=== PATIENT | male | born 1970 | race Caucasian/White ===

== ENCOUNTER 2020-03-04 16:46 | Outpatient (REF) | payer MEDICAID, SELFPAY | END 2020-03-04 16:47 | disposition home or self-care (01) | LOC: HO.LAB 16:46 | PROVIDERS: Visit Provider Internal Medicine | DX: Z20.828 Contact with and (suspected) exposure to other viral communicable diseases (principal) | CPT/HCPCS: 87635 ==

== ENCOUNTER 2020-06-15 15:11 | Outpatient (REF) | payer MEDICAID, SELFPAY | END 2020-06-15 15:12 | disposition home or self-care (01) | LOC: HO.LAB 15:11 | PROVIDERS: PCP Internal Medicine; Visit Provider Internal Medicine | DX: Z20.822 Contact with and (suspected) exposure to COVID-19 (principal) | CPT/HCPCS: 36415; C9803; U0003 ==

== ENCOUNTER 2020-07-07 08:17 | Outpatient (REF) | payer MEDICAID, SELFPAY | END 2020-07-07 08:18 | disposition home or self-care (01) | LOC: HO.LAB 08:17 | PROVIDERS: PCP Internal Medicine; Visit Provider Internal Medicine | DX: Z20.822 Contact with and (suspected) exposure to COVID-19 (principal) | CPT/HCPCS: 36415; C9803; U0003; U0005 ==

== ENCOUNTER 2020-09-21 14:51 | Outpatient (REF) | payer MEDICAID, SELFPAY ==
--- NOTE | ~2020-09-21 | XR_ITS ---
EXAMINATION: XR HIP, RIGHT CLINICAL INFORMATION: Pain COMPARISON: None TECHNIQUE: Two views of the right hip. FINDINGS: Bone alignment is normal. No fracture or dislocation is seen. There is arthritis of the right hip joint with joint space narrowing and osteophyte formation. Soft tissues are unremarkable. XR/XR hip RT min 2V IMPRESSION: Mild to moderate hip arthritis.
== END 2020-09-21 14:52 | disposition home or self-care (01) ==
LOC: HO.XRAY 14:51
PROVIDERS: PCP Internal Medicine; Visit Provider Emergency Medicine
DX: M25.551 Pain in right hip (principal)
CPT/HCPCS: 73502

== ENCOUNTER 2020-10-06 19:20 | Outpatient (REF) | payer MEDICAID, SELFPAY ==
--- NOTE | ~2020-10-06 | MR_ITS ---
EXAMINATION: MR LUMBAR SPINE WITHOUT CONTRAST CLINICAL INFORMATION: Low back pain. COMPARISON: None TECHNIQUE: MRI of the lumbar spine was obtained using routine sequences without contrast. FINDINGS: The lumbar vertebral bodies maintain normal heights and alignment. No significant disc height loss is seen. There is no endplate edema. The distal spinal cord appears normal. The conus medullaris terminates normally at the T12 level. The visualized paraspinal muscles and intra-abdominal and pelvic contents are within normal limits. SPINAL LEVELS: L1-L2: No posterior disc abnormality. No spinal canal or neural foraminal stenosis. L2-L3: No posterior disc abnormality. No spinal canal or neural foraminal stenosis. L3-L4: Disc bulging with flattening the ventral thecal sac and narrowing of the left more than right subarticular zones. Mild facet arthropathy. Moderate left and [id number] right neural foraminal stenosis with mild compression of the exiting left L3 nerve root related to shallow foraminal protrusion. L4-L5: Disc bulging, ligamentum flavum infolding, moderate facet arthropathy, and 4 mm left-sided synovial facet cyst results in mild spinal canal stenosis with bilateral subarticular stenosis and mild to moderate bilateral neural foraminal stenosis without significant foraminal compression. Mild compression of the traversing left L5 nerve root. L5-S1: Disc bulging with moderate facet arthropathy. No spinal canal or neural foraminal stenosis. MR/MR lumbar spine wo con IMPRESSION: At L3-L4 there is left foraminal protrusion resulting in moderate left-sided neural foraminal stenosis with mild compression of the exiting left L3 nerve root. At L4-L5 there are multifactorial degenerative changes including a 4 mm left-sided synovial facet cyst resulting in mild spinal canal stenosis with bilateral subarticular stenosis and mild compression of the traversing left L5 nerve root.
== END 2020-10-06 19:21 | disposition home or self-care (01) ==
LOC: HO.MRI 19:20
PROVIDERS: Visit Provider Internal Medicine
DX: M54.5 Low back pain (principal)
CPT/HCPCS: 72148

== ENCOUNTER 2020-12-21 21:23 | Emergency (ER) | payer MEDICAID, SELFPAY ==
--- NOTE | ~2020-12-21 | CT_ITS ---
EXAMINATION: CT ABDOMEN AND PELVIS WITHOUT CONTRAST CLINICAL INFORMATION: Hematuria and left flank pain COMPARISON: CT abdomen pelvis without contrast 05/17/2014 TECHNIQUE: Multidetector volumetric imaging was performed from the superior aspect of the liver through the pubic symphysis. Sagittal and coronal reformatted images were obtained on the technologist's workstation. This CT examination was performed using dose optimization techniques as appropriate, variously including the following: *Automated exposure control *Adjustment of mA and/or kV according to patient size (this includes techniques or standardized protocols for targeted exams where dose is matched to indication/reason for exam; i.e. extremities or head) *Use of iterative reconstruction technique DLP: 832 mGy-cm FINDINGS: LUNG BASES: The visualized lung bases are unremarkable. LIVER, GALLBLADDER, AND BILIARY TREE: The liver is normal in size, shape, and attenuation. No focal hepatic lesion or biliary ductal dilatation is present. The gallbladder is unremarkable with no evidence of radiopaque gallstones, gallbladder wall thickening, or obvious pericholecystic inflammatory changes. PANCREAS: Unremarkable. SPLEEN: Unremarkable. ADRENAL GLANDS: Unremarkable. KIDNEYS AND URETERS: The kidneys are normal in size, shape, and attenuation. No hydronephrosis, hydroureter, or calculi seen. The obstructing distal right ureteral calculus seen in 2013 is no longer present. No perinephric stranding. BLADDER: Unremarkable. GASTROINTESTINAL TRACT: The small and large bowel are unremarkable. The appendix is unremarkable. ABDOMINAL WALL: No significant hernia is appreciated. Tiny periumbilical hernia seen containing only fat. LYMPH NODES: No retroperitoneal lymphadenopathy. VASCULAR: Unremarkable. PELVIC VISCERA: Prostate appears mildly prominent. Seminal vesicles appear normal. OSSEOUS STRUCTURES: Unremarkable. CT/CT abdomen pelvis wo con IMPRESSION: A cause for the patient's hematuria and left flank pain is not found. No renal calculi are seen.
[2020-12-21 21:30] VITALS: BP 155/90; PULSE 83; RESP 16; TEMP 36.5; O2SAT 97; BMI 33.5
[2020-12-21 22:50] LABS: MANUAL DIFF FLAG NO
[2020-12-21 22:51] LABS: Basophils Percent Auto 0.4 % (0-2); Eosinophils Absolute Auto 0.2 X10*3/uL (0.0-0.4); Eosinophils Percent Auto 3.8 % (0-4); Hematocrit 38.6 % (42-52); Hemoglobin 14.1 g/dl (14.0-18.0); Imm Gran Abs Auto 0.01 X10*3/uL (0.00-0.03); Imm Gran Pct Auto 0.2 % (0.0-0.4); Lymphocytes Absolute Auto 1.6 X10*3/uL (1.2-4.9); Lymphocytes Percent Auto 33.6 % (20-40); Mean Corpuscular HGB Conc 36.5 g/dl (31.0-36.0); Mean Corpuscular Hemoglobin 30.9 pg (27.0-33.0); Mean Corpuscular Volume 84.6 fL (80-98); Mean Platelet Volume 9.5 fL (9.4-12.4); Monocytes Absolute Auto 0.4 X10*3/uL (0.1-1.2); Monocytes Percent Auto 8.4 % (2-11); Neutrophils Absolute Auto 2.6 X10*3/uL (2.0-8.3); Neutrophils Percent Auto 53.6 % (45-73); Platelet Count 160 X10*3/uL (160-400); Red Blood Count 4.56 X10*6/uL (4.60-5.80); Red Cell Distribution Width 11.8 % (11.0-16.0); White Blood Count 4.8 X10*3/uL (4.8-10.8)
[2020-12-21 23:27] LABS: Alanine Aminotransferase 31 U/L (0-40); Albumin Level 4.2 g/dL (3.5-5.0); Alkaline Phosphatase 124 U/L (39-117); Anion Gap 13 (12-20); Aspartate Amino Transferase 18 U/L (5-37); Blood Urea Nitrogen 14 mg/dL (9-16); Calcium 9.5 mg/dL (8.4-10.2); Carbon Dioxide 26 mmol/L (22-29); Chloride 99 mmol/L (96-108); Creatinine Clr Calc Pharmacy 102.4; Estimated Glomerular Filt Rate > 60; Glucose Random 475 mg/dL (60-115); Potassium 4.2 mmol/L (3.3-5.1); Sodium 134 mmol/L (135-145); Total Protein 6.9 g/dL (6.5-8.0)
[2020-12-21 23:29] VITALS: BP 148/86; PULSE 77; RESP 18; O2SAT 98
--- NOTE | 2020-12-21 23:30 | ED_ITS ---
HPI - Male Genitourinary General Chief complaint: Urogenital-Male Stated complaint: blood in urine Time Seen by Provider: 12/21/20 23:25 Source: patient Mode of arrival: ambulatory Limitations: no limitations History of Present Illness HPI Narrative: 50-year-old male came in for evaluation of hematuria. Patient noted couple drops of bright red blood on the toilet seat driving out of his penis after urination, patient also been complaining of left flank pain for the past couple days, patient had a history of kidney stones in the past. Patient also found to have high blood sugar patient is known to be type 2 onelia betes controlling his sugar with metformin. Related Data Allergies Allergy/AdvReac Type Severity Reaction Status Date / Time prednisone [PREDNISONE] Allergy Unknown EVERYTHING Unverified 02/05/20 16:28 SMELLS LIKE ALCOHOL Review of Systems Review of Systems: All other systems are reviewed and are negative Constitutional: Reports as per HPI and Reports no additional constitutional complaints Eyes: Reports as per HPI and Reports no additional eye complaints Reports system reviewed and no additional complaints, except as documented Cardiovascular: Reports as per HPI and Reports no additional cardiovascular complaints Respiratory: Reports as per HPI and Reports no additional respiratory complaints Gastrointestinal: Reports as per HPI and Reports no additional gastrointestinal complaints Genitourinary: Reports no additional female genitourinary complaints Musculoskeletal: Reports no additional musculoskeletal complaints Skin/Breast: Reports system reviewed and no additional complaints, except as docu Psychiatric: Reports no additional psychiatric complaints Endocrine: Reports no additional endocrine complaints Hematologic/Lymphatic: Reports no additional hematologic/lymphatic complaints Allergic/Immunologic: Reports no additional allergic/immunologic complaints Reports system reviewed and no additional complaints, except as documented and Reports Abnormal speech present [facility] Past Medical History Medical History Arthritis Diabetes HTN (hypertension) Social History Social History Advance Directives: No Advance Directives Information Provided: No Physical Exam Vital Signs: Vital Signs: Last Vital Signs Temp 97.7 F 12/21/20 21:30 Pulse 77 12/21/20 23:29 Resp 18 12/21/20 23:29 BP 148/86 H 12/21/20 23:29 Pulse Ox 98 12/21/20 23:29 Body Mass Index 33.5 Vital signs have been reviewed as appeared to be correct. Blood pressure elevated. Heart rate normal. Respiration rate normal. Temperature normal. Oxygen saturation normal. Appearance: Alert. Oriented X3. No acute distress. Head: Normal external exam. Normocephalic. Atraumatic. No Taylor signs noted. No raccoon eyes noted Eyes: PERRLA. EOMI. Conjunctiva and sclera normal. Eyelids normal. ENT: TM's Normal. Pharynx normal. Uvula midline. Moist mucous membranes. No trismus noted. No drooling noted. No muffled voice noted. Neck: Normal inspection. Neck supple. FROM. No adenopathy. Thyroid Normal. No meningeal signs. No neck mass noted. CVS: Normal heart rate and rhythm. Heart sound normal. No murmurs noted. Pulses normal throughout. Respiratory: No respiratory distress. Painless inspiration. Breath sounds normal. No wheezes/rales/rhonchi noted. Chest nontender. No accessory muscle usage noted or decreased air movement noted. Abdomen: Soft and nontender. Bowel sounds normal in all 4 quadrants. No distention noted. No organomegaly noted. No visible injury noted. Back: Left CVA tenderness. Full range of motion noted. Skin: Skin warm and dry. Normal skin color. Normal skin turgor. No rashes/lesions/lacerations noted. Extremities: No lower extremity edema. Extremities exhibit normal range of motion. Extremities nontender. Neuro: Oriented X 3. No motor deficit. No sensory deficit. Reflexes normal. Course Course Course Narrative: Assessment and plan. 50-year-old male came in with left flank pain and gross hematuria, with history of kidney stone, CT abdomen pelvis showed no acute kidney stone. Will refer the patient to neurology for further evaluation for hematuria. Patient is diabetes type 2 using Glucophage found to have high blood sugar, no DKA, patient was given IV fluids and insulin blood sugar is 199. MDM - Male Genitourinary Lab Data Attestation: I reviewed the patient's lab results. Result diagrams: 12/21/20 22:44 12/21/20 22:44 Labs: Lab Results 12/21/20 12/21/20 12/21/20 Range/Units 21:49 22:44 22:44 WBC 4.8 (4.8-10.8) X10*3/uL RBC 4.56 L (4.60-5.80) X10*6/uL Hgb 14.1 (14.0-18.0) g/dl Hct 38.6 L (42-52) % MCV 84.6 (80-98) fL MCH 30.9 (27.0-33.0) pg MCHC 36.5 H (31.0-36.0) g/dl RDW 11.8 (11.0-16.0) % Plt Count 160 (160-400) X10*3/uL MPV 9.5 (9.4-12.4) fL Immature Gran % (Auto) 0.2 (0.0-0.4) % Neut % (Auto) 53.6 (45-73) % Lymph % (Auto) 33.6 (20-40) % Merrick % (Auto) 8.4 (2-11) % Eos % (Auto) 3.8 (0-4) % Baso % (Auto) 0.4 (0-2) % Lymph # (Auto) 1.6 (1.2-4.9) X10*3/uL Merrick # (Auto) 0.4 (0.1-1.2) X10*3/uL Eos # (Auto) 0.2 (0.0-0.4) X10*3/uL Baso # (Auto) 0.0 (0.0-0.2) X10*3/uL Abs Immat Gran (auto) 0.01 (0.00-0.03) X10*3/uL Absolute Neuts (auto) 2.6 (2.0-8.3) X10*3/uL Absolute Nucleated RBC 0.000 (0.0-0.012) X10*3/uL Nucleated RBC % (auto) 0.0 (0.0-0.2) /100WBC Sodium 134 L (135-145) mmol/L Potassium 4.2 (3.3-5.1) mmol/L Chloride 99 (96-108) mmol/L Carbon Dioxide 26 (22-29) mmol/L Anion Gap 13 (12-20) BUN 14 (9-16) mg/dL Creatinine 1.14 (0.5-1.4) mg/dL Estim Creat Clear Calc 102.4 Estimated GFR > 60 POC Glucose (60-115) mg/dL Random Glucose 475 H* (60-115) mg/dL Calcium 9.5 (8.4-10.2) mg/dL Total Bilirubin 1.0 (0.0-1.0) mg/dL AST 18 (5-37) U/L ALT 31 (0-40) U/L Alkaline Phosphatase 124 H (39-117) U/L Total Protein 6.9 (6.5-8.0) g/dL Albumin 4.2 (3.5-5.0) g/dL Urine Color YELLOW Urine Appearance CLEAR Urine pH 6.0 (5.0-8.0) Ur Specific [place] 1.010 (1.005-1.025) Urine Protein NEG (NEG-TRACE) MG/DL Urine Glucose (UA) >=1000 H (NEG) MG/DL Urine Ketones NEG (NEG) MG/DL Urine Blood NEG (NEG) Urine Nitrite NEG (NEG) Ur Leukocyte Esterase NEG (NEG) Urine RBC 0 (0) /HPF Urine WBC 0 (0-4) /HPF Ur Squamous Epith Cells 1+ /LPF Urine Bacteria NONE /LPF Urine Mucus 1+ /LPF 12/22/20 Range/Units 00:31 WBC (4.8-10.8) X10*3/uL RBC (4.60-5.80) X10*6/uL Hgb (14.0-18.0) g/dl Hct (42-52) % MCV (80-98) fL MCH (27.0-33.0) pg MCHC (31.0-36.0) g/dl RDW (11.0-16.0) % Plt Count (160-400) X10*3/uL MPV (9.4-12.4) fL Immature Gran % (Auto) (0.0-0.4) % Neut % (Auto) (45-73) % Lymph % (Auto) (20-40) % Merrick % (Auto) (2-11) % Eos % (Auto) (0-4) % Baso % (Auto) (0-2) % Lymph # (Auto) (1.2-4.9) X10*3/uL Merrick # (Auto) (0.1-1.2) X10*3/uL Eos # (Auto) (0.0-0.4) X10*3/uL Baso # (Auto) (0.0-0.2) X10*3/uL Abs Immat Gran (auto) (0.00-0.03) X10*3/uL Absolute Neuts (auto) (2.0-8.3) X10*3/uL Absolute Nucleated RBC (0.0-0.012) X10*3/uL Nucleated RBC % (auto) (0.0-0.2) /100WBC Sodium (135-145) mmol/L Potassium (3.3-5.1) mmol/L Chloride (96-108) mmol/L Carbon Dioxide (22-29) mmol/L Anion Gap (12-20) BUN (9-16) mg/dL Creatinine (0.5-1.4) mg/dL Estim Creat Clear Calc Estimated GFR POC Glucose 199 H (60-115) mg/dL Random Glucose (60-115) mg/dL Calcium (8.4-10.2) mg/dL Total Bilirubin (0.0-1.0) mg/dL AST (5-37) U/L ALT (0-40) U/L Alkaline Phosphatase (39-117) U/L Total Protein (6.5-8.0) g/dL Albumin (3.5-5.0) g/dL Urine Color Urine Appearance Urine pH (5.0-8.0) Ur Specific [place] (1.005-1.025) Urine Protein (NEG-TRACE) MG/DL Urine Glucose (UA) (NEG) MG/DL Urine Ketones (NEG) MG/DL Urine Blood (NEG) Urine Nitrite (NEG) Ur Leukocyte Esterase (NEG) Urine RBC (0) /HPF Urine WBC (0-4) /HPF Ur Squamous Epith Cells /LPF Urine Bacteria /LPF Urine Mucus /LPF Imaging Data CT scan - abdomen: Radiologist's impression: A cause for the patient's hematuria and left flank pain is not found. No renal calculi are seen. Discharge Plan Discharge Clinical Impression: Hyperglycemia due to diabetes mellitus Hematuria Qualifiers: Hematuria type: gross Qualified Code(s): R31.0 - Gross hematuria Patient Disposition: Home, Self-Care Instructions: Hematuria (ED), Diabetic Hyperglycemia (ED) Referrals: Kavon Garnett MD [Physician] - 2 days Marcus Crooks MD [Primary Care Provider] - 2 days
[2020-12-21] MEDS: 0.9 % Sodium Chloride 1,000 ML 999 ML IVCONT (23:38)
[2020-12-21] MEDS: Ketorolac Tromethamine 15 MG/ML VIAL 30 MG IVPUSH (23:40)
[2020-12-21] MEDS: Insulin Regular, Human 100 UNIT/ML 3 ML VIAL IVPUSH (23:41)
--- NOTE | 2020-12-21 23:44 | PC.NURSE ---
pt off to CT via stretcher s/p being medicated per MD orders for 10 left flank pain
[2020-12-21 23:49] LABS: Glucose Urine UA >=1000 MG/DL (NEG); Leukocyte Esterase Urine NEG (NEG); Nitrite Urine NEG (NEG); Urine Blood NEG (NEG); Urine Ketones NEG (NEG); Urine Protein NEG (NEG-TRACE)
[2020-12-21 23:50] LABS: Appearance Urine CLEAR; Color Urine YELLOW
[2020-12-22 00:16] LABS: Mucus Urine 1+ /LPF; RBC Urine 0 /HPF (0); Squamous Epithelial Cell Urine 1+ /LPF; WBC Urine 0 /HPF (0-4)
[2020-12-22 00:37] LABS: Glucose, Whole Blood 199 mg/dL (60-115)
== END 2020-12-22 01:21 | disposition home or self-care (01) ==
PROVIDERS: Emergency Medicine; Emergency Provider Emergency Medicine; PCP Internal Medicine
DX: E11.65 Type 2 diabetes mellitus with hyperglycemia (principal); R31.0 Gross hematuria; I10 Essential (primary) hypertension; Z87.442 Personal history of urinary calculi
CPT/HCPCS: 36415; 74176; 80053; 81001; 82947; 85025; 87086; 96361; 96374; 96375; 99284; J1885

== ENCOUNTER 2020-12-27 08:54 | Outpatient (REF) | payer MEDICAID, SELFPAY ==
--- NOTE | ~2020-12-27 | US_ITS ---
EXAMINATION: US ABDOMEN LIMITED CLINICAL INFORMATION: Palpable abdominal protrusion (left upper abdomen below left ribs). COMPARISON: CT abdomen and pelvis without contrast dated 12/21/2020. TECHNIQUE: Real-time imaging of the area of concern examined inferior to left ribs. FINDINGS: Ultrasound imaging to the palpable area just inferior to the left ribs reveals no mass, mass effect or fluid collection. US/US abdomen limited IMPRESSION: No abnormal ultrasound findings corresponding to abnormal palpable area inferior to left ribs. Correlation with limited CT can be performed to exclude any hypertrophic spurring or callus formation of the left ribs or costal cartilage.
== END 2020-12-27 08:55 | disposition home or self-care (01) ==
LOC: HO.US 08:54
PROVIDERS: PCP Internal Medicine; Visit Provider Emergency Medicine
DX: K43.9 Ventral hernia without obstruction or gangrene (principal)
CPT/HCPCS: 76705

== ENCOUNTER 2021-12-08 15:20 | Outpatient (REF) | payer MEDICAID, SELFPAY ==
--- NOTE | ~2021-12-08 | XR_ITS ---
EXAMINATION: XR KNEE, LEFT CLINICAL INFORMATION: Left knee pain. COMPARISON: None TECHNIQUE: Three views of the left knee. FINDINGS: Normal osseous mineralization. There is no evidence of acute fracture or dislocation. Joint spaces are preserved. Changes of enthesopathy are noted at the patella, at the insertion of quadriceps tendon. No evidence of suprapatellar joint effusion. Scattered vascular calcifications. XR/XR knee LT 3V IMPRESSION: No acute osseous abnormality in the knee. Patellar enthesophyte at insertion of quadriceps tendon.
== END 2021-12-08 15:21 | disposition home or self-care (01) ==
LOC: HO.XRAY 15:20
PROVIDERS: Absent Provider Internal Medicine; PCP Internal Medicine; Visit Provider Internal Medicine
DX: M25.562 Pain in left knee (principal)
CPT/HCPCS: 73562

== ENCOUNTER 2022-02-03 | Outpatient (REF) | payer MEDICAID, SELFPAY ==
--- NOTE | ~2022-02-03 | XR_ITS ---
EXAMINATION: XR KNEE AP STANDING CLINICAL INFORMATION: Pain. COMPARISON: Right knee radiographs dated 12/08/2021. TECHNIQUE: AP bilateral standing view of the knees was obtained. FINDINGS: Bony alignment and mineralization are normal. No fracture or joint effusion. Alignment is anatomic. Joint spaces are well maintained. There is nonspecific bilateral tibial and fibular periosteal thickening. On the right, this is stable from 12/08/2021. No abnormal soft tissue calcification. XR/XR knee standing BI IMPRESSION: 1. The bilateral lateral and medial joint space compartments are well-maintained. 2. No significant varus or valgus configuration is seen bilaterally. 3. No fracture or dislocation is noted. 4. There is nonspecific bilateral tibial and fibular periosteal thickening, likely chronic and reflecting prior injury.
== END 2022-02-03 00:01 | disposition home or self-care (01) ==
LOC: HO.HOSX
PROVIDERS: Visit Provider Physician Assistant
DX: M23.92 Unspecified internal derangement of left knee (principal); E11.9 Type 2 diabetes mellitus without complications
CPT/HCPCS: 20610; 73565; 99202; J1020

== ENCOUNTER 2022-02-23 16:00 | Outpatient (RCR) | payer MEDICAID, SELFPAY ==
--- NOTE | 2022-02-16 17:03 | MHC.PT.EP ---
[facility] [place] Office [place] Office [place] Office [address] Chiqui Carter [address] [phone] F: [phone] F: [phone] F: [phone] F: [phone] Physical Therapy Plan of Care Date of Evaluation: Date of Surgery: Diagnosis: Unspecified internal derangement of L knee Assessment: Patient is 51 y.o male who presents to physical therapy with MD Dx of internal derangement of L knee, not yet confirmed by imaging. He presents as possible small meniscal tear and possible MCL sprain/strain due to tender and effected area. He has weakness in L knee and L hip, antalgic gait, impaired squats, difficulty at work with prolonged standing and walking, stair use. He will benefit from skilled PT to strengthen L knee for more support, manage pain and restore his functional mobility to prior level of function prior to injury. Frequency and Duration: The patient will be seen 1-2x/week for 4 weeks Short Term Goals: 2 weeks Patient demonstrates consistency and independence with HEP to self manage symptoms. Patient demonstrates normalized gait pattern without L knee pain. Long-Term Goals: 4 weeks Patient tests 5/5 L knee flexion strength to be able to ascend/descend 12 steps reciprocally. Patient tests 5/5 L knee extension strength to be able to perform squat without difficulty for work tasks. Treatment Plan: Modalities to reduce pain, spasms and effusion. Manual therapy to restore motion and function. Therapeutic exercise to improve strength and flexibility. Neuromuscular re-education for posture and balance. Therapeutic activities to return to functional activities of daily living. Electronically signed by: Marcelo Peterson, PT, DPT Please sign and return to therapist. Thank you for your referral.
--- NOTE | 2022-03-10 15:30 | MHC.PT.DC ---
[facility] [place] Office [place] Office [place] Office [address] Chiqui Carter [address] [phone] F: [phone] F: [phone] F: [phone] F: [phone] Physical Therapy Discharge Report Diagnosis: Unspecified internal derangement of L knee Date of Surgery: Date of Evaluation: 02/16/22 Date of Discharge: 03/10/22 Treatments to Date: 2 Cancellations to Date: No Shows to Date: Discharge Status: Discharge Summary: Pt progressed w/primarily [place] ex's w/o increased px reported. No visual signs of edema at this time. Patient called to request discharge from PT. Electronically signed by: Marcelo Peterson PT, DPT Please sign and return to therapist. Thank you for your referral.
== END 2022-03-10 15:31 | disposition home or self-care (01) ==
LOC: HO.PT 16:00
PROVIDERS: PCP Internal Medicine; Visit Provider Physician Assistant
DX: M23.92 Unspecified internal derangement of left knee (principal)
CPT/HCPCS: 97110; 97112; 97161

== ENCOUNTER 2022-03-21 07:21 | Outpatient (REF) | payer MEDICAID, SELFPAY ==
--- NOTE | ~2022-03-21 | MR_ITS ---
EXAMINATION: MR KNEE WITHOUT CONTRAST, LEFT CLINICAL INFORMATION: Internal derangement of the knee. COMPARISON: None TECHNIQUE: MRI of the knee without contrast was performed using routine sequences on a high-field scanner. FINDINGS: MENISCI: Medial Meniscus: Degenerative signal in the posterior horn. Mild posterior root fraying. Otherwise intact. Lateral Meniscus: Intact LIGAMENTS: Cruciate: Intact Collateral: Intact EXTENSOR MECHANISM: Intact ARTICULAR CARTILAGE/BONE: Patellofemoral Compartment: No significant cartilage loss Medial Compartment: Cartilage fissuring in the lateral aspect of the medial femoral condyle. Lateral Compartment: No significant cartilage loss. No fracture. No suspicious marrow signal changes. JOINT FLUID AND BURSAE: Small effusion. Small Butts's cyst. Possible mild proximal medial gastrocnemius tendinosis. MR/MR knee LT wo con IMPRESSION: 1. Mild posterior root fraying of the medial meniscus. 2. Mild chondromalacia in the lateral aspect of the medial femoral condyle. 3. Small effusion. Small Butts's cyst. 4. Possible mild proximal medial gastrocnemius tendinosis.
== END 2022-03-21 07:22 | disposition home or self-care (01) ==
LOC: HO.MRI 07:21
PROVIDERS: Visit Provider Physician Assistant
DX: M23.92 Unspecified internal derangement of left knee (principal)
CPT/HCPCS: 73721

== ENCOUNTER → 2022-03-27 13:16 | Outpatient (BNVA) | payer MEDICAID, SELFPAY | PROVIDERS: PCP Internal Medicine; Visit Provider Physician Assistant | DX: M23.92 Unspecified internal derangement of left knee (principal); E11.9 Type 2 diabetes mellitus without complications | CPT/HCPCS: 99212 ==

== ENCOUNTER 2022-09-06 14:11 | Outpatient (REF) | payer MEDICAID, SELFPAY ==
--- NOTE | ~2022-09-06 | XR_ITS ---
EXAMINATION: Bilateral shoulder x-ray CLINICAL INFORMATION: Pain COMPARISON: None. TECHNIQUE: 4 views of each shoulder FINDINGS: Left: Bone alignment is normal. No fracture or dislocation. Normal joint spaces. Arthritis at the acromioclavicular joint. Small undersurface acromial osteophyte. Normal soft tissues. Right: Bone alignment is normal. No fracture or dislocation. There is arthritis at the glenohumeral and acromioclavicular joints. Soft tissues are normal. XR/XR shoulder LT min 2V IMPRESSION: Bilateral arthritis, right greater than left.
--- NOTE | ~2022-09-06 | XR_ITS ---
EXAMINATION: Bilateral shoulder x-ray CLINICAL INFORMATION: Pain COMPARISON: None. TECHNIQUE: 4 views of each shoulder FINDINGS: Left: Bone alignment is normal. No fracture or dislocation. Normal joint spaces. Arthritis at the acromioclavicular joint. Small undersurface acromial osteophyte. Normal soft tissues. Right: Bone alignment is normal. No fracture or dislocation. There is arthritis at the glenohumeral and acromioclavicular joints. Soft tissues are normal. XR/XR shoulder RT min 2V IMPRESSION: Bilateral arthritis, right greater than left.
== END 2022-09-06 14:12 | disposition home or self-care (01) ==
LOC: HO.XRAY 14:11
PROVIDERS: PCP Internal Medicine; Visit Provider Internal Medicine
DX: M25.511 Pain in right shoulder (principal); M25.512 Pain in left shoulder
CPT/HCPCS: 73030

== ENCOUNTER 2022-12-18 09:07 | Day surgery (SDC) | payer MEDICAID, SELFPAY ==
--- NOTE | 2022-12-15 12:13 | P.CONAN_ITS ---
Documented by User: Sharon Lu NP 12/15/22 12:14 HPI - Anesthesia Eval Consult details Narrative: 52yo M for Colonoscopy PMF Active Problems Active Problems: All Active Problems (Updated 02/03/22 @ 08:55 by Angela Dee PA-C) Diabetes (Acute) Internal derangement of left knee (Acute) Past Medical History Medical History Arthritis Diabetes HTN (hypertension) Surgical History Surgical History (Updated 12/18/22 @ 10:29 by Caron Sarkar, RN) H/O carpal tunnel repair H/O elbow surgery Hx of colonoscopy Social History Social History Patient Tobacco Use Status: Former Tobacco user Are you DNR?: No Advance Directives: No Advance Directives Information Provided: Yes Current occupational status: employed 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 Meds Allergies Allergy/AdvReac Type Severity Reaction Status Date / Time prednisone [PREDNISONE] Allergy Unknown EVERYTHING Unverified 03/27/22 13:19 SMELLS LIKE ALCOHOL Home Medications Medication Instructions Recorded Confirmed Last Taken Type acetaminophen 500 mg tablet 1,000 mg PO BEDTIME 02/03/22 12/15/22 History hydrochlorothiazide 25 mg tablet 25 mg PO DAILY 02/03/22 12/15/22 History metformin 500 mg tablet 500 mg PO BID 02/03/22 12/15/22 History Exam Exam Date and Time: December 15, 2022 1213 Assessment and Plan Assessment Anesthesia Assessment: Chart Reviewed Documented by User: Yesy Leiva MD 12/18/22 11:42 [facility] Past Medical History Medical History Arthritis Diabetes HTN (hypertension) Family History Family history of problems with anesthesia: No Surgical History Surgical History (Updated 12/18/22 @ 10:29 by Caron Sarkar RN) H/O carpal tunnel repair H/O elbow surgery Hx of colonoscopy History of Problems with Anesthesia: No Social History Social History Patient Tobacco Use Status: Former Tobacco user Are you DNR?: No Advance Directives: No Advance Directives Information Provided: Yes Current occupational status: employed Current occupation: printing shop/rt hand Meds Allergies Allergy/AdvReac Type Severity Reaction Status Date / Time prednisone [PREDNISONE] Allergy Unknown EVERYTHING Unverified 03/27/22 13:19 SMELLS LIKE ALCOHOL Home Medications Medication Instructions Recorded Confirmed Last Taken Type acetaminophen 500 mg tablet 1,000 mg PO BEDTIME 02/03/22 12/15/22 History hydrochlorothiazide 25 mg tablet 25 mg PO DAILY 02/03/22 12/15/22 History metformin 500 mg tablet 500 mg PO BID 02/03/22 12/15/22 History Exam Airway Mallampati Class: II TM Dist: >3cm Neck ROM: Full Heart: rr Lungs: cta Assessment and Plan Assessment Anesthesia Assessment: Anesthesia Plan Discussed and Smoking Cess. Discussed Final Anesthetic Review Family History of Problems with Anesthesia: No History of Problems with Anesthesia: No NPO: Yes ASA Class: II Final Preanesthetic Review: No Changes in Pt Med Stat, Meds/Allgs Chart Reviewed, Consent Obtained/Reviewed and Anes Risks/Benef Reviewed Patient Risk: Low Procedure Risk: Low Anesthetic Plan Anesthetic Plan: MAC: Disposition: Standard PACU
[2022-12-18 09:40] VITALS: BMI 32.4
[2022-12-18 10:15] VITALS: BP 152/79; PULSE 86; RESP 18; TEMP 36.3; O2SAT 98
[2022-12-18 10:17] LABS: Glucose, Whole Blood 327 mg/dL (60-115)
--- NOTE | 2022-12-18 10:22 | PC.NURSE ---
plan for hihg bs is fluids bolus pt aware of plan of care and recheck bs prior to having colonscopy
[2022-12-18 11:02] LABS: Glucose, Whole Blood 258 mg/dL (60-115)
--- NOTE | 2022-12-18 11:06 | PC.NURSE ---
bs after liter bolus 258 anesthesia aware
--- NOTE | 2022-12-18 12:04 | P.BOP_ITS ---
Brief Operative Note Date of Service: 12/18/22 Pre-op diagnosis: Screening Post-op diagnosis: other (Diverticulosis) Procedure: Colonoscopy to the cecum Surgeon: Carlos Kapoor Anesthesia: MAC Was an Registered Safety Engineer used for this Procedure?: No Estimated blood loss (mL): 0 Pathology: none sent Condition: stable Disposition: PACU
[2022-12-18 12:07] VITALS: BP 146/73; PULSE 73; RESP 15; TEMP 36.1; O2SAT 97
[2022-12-18 12:22] VITALS: BP 158/87; PULSE 79; RESP 15; O2SAT 95
--- NOTE | 2022-12-18 12:45 | HO.ANESPROP2 ---
HPI - Anesthesia Eval Consult details Narrative: [facility] Active Problems Active Problems: All Active Problems (Updated 02/03/22 @ 08:55 by Angela Dee PA-C) Internal derangement of left knee (Acute) Diabetes (Acute) Past Medical History Medical History Arthritis Diabetes HTN (hypertension) Family History Family history of problems with anesthesia: No Surgical History Surgical History (Updated 12/18/22 @ 10:29 by Caron Sarkar RN) H/O carpal tunnel repair H/O elbow surgery Hx of colonoscopy History of Problems with Anesthesia: No Social History Social History Patient Tobacco Use Status: Former Tobacco user Are you DNR?: No Advance Directives: No Advance Directives Information Provided: Yes Current occupational status: employed 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 Meds Allergies Allergy/AdvReac Type Severity Reaction Status Date / Time prednisone [PREDNISONE] Allergy Unknown EVERYTHING Unverified 03/27/22 13:19 SMELLS LIKE ALCOHOL Active Medications: Current Medications Lactated Ringer's (Lr) 1,000 mls @ 100 mls/hr IVCONT .Q10H KATYA Sodium Biphosphate/Sodium Phosphate (Sodium Phosphate,[place]-Dibasic 133 Ml Enema) 133 ml MI ONCE PRN PRN Reason: Poor Colonoscopy Prep Results Home Medications Medication Instructions Recorded Confirmed Last Taken Type acetaminophen 500 mg tablet 1,000 mg PO BEDTIME 02/03/22 12/15/22 History hydrochlorothiazide 25 mg tablet 25 mg PO DAILY 02/03/22 12/15/22 History metformin 500 mg tablet 500 mg PO BID 02/03/22 12/15/22 History Exam Exam Date and Time: December 18, 2022 1245 Height,Weight and Vital Signs: Height 6 ft Weight 108.409 kg Last Vital Signs Temp 97.0 F 12/18/22 12:07 Pulse 79 12/18/22 12:22 Resp 15 12/18/22 12:22 BP 158/87 H 12/18/22 12:22 Pulse Ox 95 12/18/22 12:22 O2 Del Method Room Air 12/18/22 12:22 O2 Flow Rate 2 12/18/22 12:07 Pertinent Lab Results Pertinent Lab Results: Laboratory Tests 12/18/22 12/18/22 10:13 10:59 POC Glucose 327 H 258 H Airway Mallampati Class: II TM Dist: >3cm Neck ROM: Full Loose/Missing/Broken Teeth: No Heart: rr Lungs: cta Assessment and Plan Assessment Anesthesia Assessment: Anesthesia Plan Discussed and Chart Reviewed Final Anesthetic Review Family History of Problems with Anesthesia: No History of Problems with Anesthesia: No NPO: Yes ASA Class: II Final Preanesthetic Review: No Changes in Pt Med Stat, Meds/Allgs Chart Reviewed, Consent Obtained/Reviewed and Anes Risks/Benef Reviewed Patient Risk: Low Procedure Risk: Low Anesthetic Plan Anesthetic Plan: MAC: Disposition: Standard PACU
[2022-12-18 12:46] VITALS: BP 152/92; PULSE 66; RESP 16; TEMP 36.1; O2SAT 97
--- NOTE | 2022-12-18 23:34 | OP_ITS ---
DATE OF SERVICE: 12/18/2022 SURGEON: Carlos Kapoor MD INDICATIONS: The patient presents for evaluation of colorectal cancer screening. Full consent has been obtained from him for this, including risks of bleeding and perforation. PREOPERATIVE DIAGNOSIS: Colorectal cancer screening. POSTOPERATIVE DIAGNOSIS: PROCEDURE PERFORMED: Colonoscopy to the cecum. ESTIMATED BLOOD LOSS: COMPLICATIONS: ANESTHESIA: Monitored anesthesia care. ASSISTANTS: SPECIMENS: POSTOPERATIVE DIAGNOSES: Colorectal cancer screening, mild sigmoid diverticulosis, and small internal hemorrhoids. DESCRIPTION OF PROCEDURE: The patient was placed in the left lateral decubitus position. The digital rectal exam revealed no abnormalities. The Olympus video pediatric colonoscope was entered into the rectum and advanced easily to the cecum. Once in the cecum, I did identify normal-appearing cecal pouch with appendiceal orifice and a normal-appearing ileocecal valve. The entire cecum and ileocecal valve appeared normal. There was transillumination of light deep in the right lower quadrant. The scope was then slowly withdrawn assessing all mucosal surfaces carefully. Preparation was excellent. I did not visualize any sign of polyps, colitis, nor angiodysplasia. There was a mild amount of sigmoid diverticulosis. In the rectum, scope was retroflexed visualizing internal hemorrhoids, but no other pathology. The rectal mucosa appeared normal. The scope was straightened and withdrawn from the patient. He tolerated the procedure well and was returned to the recovery area in stable condition. IMPRESSION: 1. Mild sigmoid diverticulosis. 2. Internal hemorrhoids. PLAN: Given his negative exam and no family history of colon cancer, I would recommend a followup coloscopy in 10 years for further screening. He will otherwise see me on a p.r.n. basis. Carlos Kapoor MD RMW/GIOL / [phone] MTDD
== END 2022-12-18 13:23 | disposition home or self-care (01) ==
PROVIDERS: PCP Internal Medicine; Visit Provider Internal Medicine
PROC: 0DJD8ZZ Inspection of Lower Intestinal Tract, Via Natural or Artificial Opening Endoscopic (ICD-10-PCS; CPT 45378; principal; 2022-12-18 10:30)
DX: Z12.11 Encounter for screening for malignant neoplasm of colon (principal); K57.30 Diverticulosis of large intestine without perforation or abscess without bleeding; K64.8 Other hemorrhoids; E11.9 Type 2 diabetes mellitus without complications; I10 Essential (primary) hypertension; Z87.891 Personal history of nicotine dependence; Z79.84 Long term (current) use of oral hypoglycemic drugs
CPT/HCPCS: 45378; 82947

== ENCOUNTER 2023-02-01 18:20 | Emergency (ER) | payer MEDICAID, SELFPAY ==
[2023-02-01 18:50] VITALS: BP 160/85; PULSE 88; RESP 16; TEMP 36.6; O2SAT 97; BMI 29.7
--- NOTE | 2023-02-01 18:51 | ED.SKABFB ---
HPI - Skin/Abscess/Foreign Bdy General Chief complaint: Skin/Abscess/Foreign Body Stated complaint: Ball in face? Time Seen by Provider: 02/01/23 18:58 Source: patient and RN notes reviewed Mode of arrival: ambulatory Limitations: no limitations History of Present Illness HPI narrative: This is a 52 year old male with a past medical history of diabetes, presenting to department complaints left-sided facial bump with redness and swelling. Patient states that since Sunday he has noticed a bump develop on the left side of his face with associated drainage. Denies bit by any insects. Denies any fevers or chills. Denies taking any medications at home to treat his current symptoms. No other complaints or concerns at this time. MD complaint: abscess/boil Pain Consistency: constant Relieving factors: none Exacerbating factors: none Context: none Associated symptoms: denies other symptoms Treatments prior to arrival: none Related Data Home Medications Medication Instructions Recorded Confirmed acetaminophen 500 mg tablet 1,000 mg PO BEDTIME 02/03/22 hydrochlorothiazide 25 mg tablet 25 mg PO DAILY 02/03/22 metformin 500 mg tablet 500 mg PO BID 02/03/22 Previous Rx's Medication Instructions Recorded cephalexin 250 mg capsule 250 mg PO QID 7 days #28 caps 02/01/23 doxycycline hyclate 100 mg capsule 100 mg PO BID 7 days #14 caps 02/01/23 Allergies Allergy/AdvReac Type Severity Reaction Status Date / Time prednisone [PREDNISONE] Allergy Unknown EVERYTHING Verified 02/01/23 18:55 SMELLS LIKE ALCOHOL Review of Systems Review of Systems: Yes all other systems are reviewed and are negative [facility] Past Medical History Medical History (Updated 02/02/23 @ 00:01 by Yfn Johnson) Arthritis HTN (hypertension) Diabetes Surgical History (Updated 12/18/22 @ 10:29 by Caron Sarkar, ALBERT) Hx of colonoscopy H/O elbow surgery H/O carpal tunnel repair Social History Social History Patient Tobacco Use Status: Former Tobacco user Advance Directives: No Advance Directives Information Provided: No Current occupational status: employed Current occupation: printing shop/rt hand Physical Exam Vital Signs: Vital Signs: Last Vital Signs Temp 97.9 F 02/01/23 18:50 Pulse 88 02/01/23 18:50 Resp 16 02/01/23 18:50 BP 160/85 H 02/01/23 18:50 Pulse Ox 97 02/01/23 18:50 O2 Del Method Room Air 02/01/23 18:50 BMI result Body Mass Index 29.7 Const: Other: General: Awake, alert, and oriented X3. No acute distress. HEENT: Normal inspection CVS: Normal heart rate and rhythm. Pulses normal. Respiratory: No respiratory distress Skin: Left cheek with 2cm area of induration and warmth, no fluctuance. No drainage. Neuro: Oriented X 3. No motor deficit. No sensory deficit. Medical Decision Making Medical Decision Making MDM Narrative: 52-year-old male presenting to the emergency department for evaluation of cellulitis to his left cheek. blood pressure 160/85, all other vital signs within limits. Examination findings concerning for abscecss vs cellulitis. Discussed findings with pt. Will treat with oral abx, encouraged to apply warm compresses to area and to return with any new or worsening symptoms. Pt understands and agrees with plan. Stable for d/c. Differential Diagnosis Differential Diagnoses: The differential diagnosis associated with the presentation includes cellulitis, abscess, folliculitis Discharge Plan Discharge Clinical Impression: Cellulitis and abscess of face Patient Disposition: Home, Self-Care Instructions: Cellulitis (ED), Abscess (ED) Additional Instructions: You have the development of an abscess. Please take prescribed medication as directed. Finish the entire course of antibiotics even if your feeling better. Apply warm compresses to the area multiple times per day. If any new or worsening symptoms occur including but not limited to worsening redness, fevers or chills please return re-evaluation. Prescriptions: New doxycycline hyclate 100 mg capsule 100 mg PO BID 7 Days Qty: 14 0RF cephalexin 250 mg capsule 250 mg PO QID 7 Days Qty: 28 0RF No Action acetaminophen 500 mg tablet 1,000 mg PO BEDTIME hydrochlorothiazide 25 mg tablet 25 mg PO DAILY metformin 500 mg tablet 500 mg PO BID Interventions: ED Discharge Assessment Last Done: 02/01/23 19:25 Discharge Date/Time: 02/01/23 19:25
== END 2023-02-01 19:25 | disposition home or self-care (01) ==
PROVIDERS: Emergency Provider Student in an Organized Health Care Education/Training Program; PCP Internal Medicine
DX: L03.211 Cellulitis of face (principal); L02.01 Cutaneous abscess of face; E11.9 Type 2 diabetes mellitus without complications; I10 Essential (primary) hypertension; Z87.891 Personal history of nicotine dependence; Z79.84 Long term (current) use of oral hypoglycemic drugs; Z79.899 Other long term (current) drug therapy
CPT/HCPCS: 99282; 99283

== ENCOUNTER 2023-03-13 14:07 | Emergency (ER) | payer SELFPAY ==
[2023-03-13 14:41] VITALS: BP 158/78; PULSE 86; RESP 20; TEMP 36.3; O2SAT 98; BMI 31.2
--- NOTE | 2023-03-13 14:45 | ED_ITS ---
HPI - Extremity Problem General Chief complaint: Extremity Problem Stated complaint: R knee pain/lump Related Data Home Medications Medication Instructions Recorded Confirmed acetaminophen 500 mg tablet 1,000 mg PO BEDTIME 02/03/22 hydrochlorothiazide 25 mg tablet 25 mg PO DAILY 02/03/22 metformin 500 mg tablet 500 mg PO BID 02/03/22 Previous Rx's Medication Instructions Recorded cephalexin 250 mg capsule 250 mg PO QID 7 days #28 caps 02/01/23 doxycycline hyclate 100 mg capsule 100 mg PO BID 7 days #14 caps 02/01/23 Allergies Allergy/AdvReac Type Severity Reaction Status Date / Time prednisone [PREDNISONE] Allergy Unknown EVERYTHING Verified 02/01/23 18:55 SMELLS LIKE ALCOHOL PMFSH Past Medical History Medical History (Updated 02/02/23 @ 00:01 by Yfn Johnson) Arthritis HTN (hypertension) Diabetes Surgical History (Updated 12/18/22 @ 10:29 by Caron Sarkar RN) Hx of colonoscopy H/O elbow surgery H/O carpal tunnel repair Social History Social History Patient Tobacco Use Status: Former Tobacco user Current occupational status: employed Current occupation: [employer]/rt hand Physical Exam Vital Signs: Vital Signs: Last Vital Signs Temp 97.3 F 03/13/23 14:41 Pulse 86 03/13/23 14:41 Resp 20 03/13/23 14:41 BP 158/78 H 03/13/23 14:41 Pulse Ox 98 03/13/23 14:41 O2 Del Method Room Air 03/13/23 14:41 BMI result Body Mass Index 31.2 Course Course Course Narrative: Patient complains of right knee pain for 1 day without injury he denies redness or warmth, he is able to walk on it The right knee is not red or warm it extends to 180 it flexes past 90 and ambulates with a slight limp X-rays ordered This is rapid medical exam in triage pending full evaluation and dispo by provider in er Discharge Plan Discharge Prescriptions: No Action doxycycline hyclate 100 mg capsule 100 mg PO BID 7 Days Qty: 14 0RF cephalexin 250 mg capsule 250 mg PO QID 7 Days Qty: 28 0RF acetaminophen 500 mg tablet 1,000 mg PO BEDTIME hydrochlorothiazide 25 mg tablet 25 mg PO DAILY metformin 500 mg tablet 500 mg PO BID
== END 2023-03-13 17:44 | disposition left against medical advice (07) ==
PROVIDERS: Emergency Provider Emergency Medicine; PCP Internal Medicine
DX: M25.561 Pain in right knee (principal)
CPT/HCPCS: 99281